=== PATIENT | female | born 1970 | race Caucasian/White ===

== ENCOUNTER 2016-10-06 08:00 | Day surgery (SDC) | payer MEDICARE, MEDICAID ==
[2016-10-06] MEDS ORDERED: Midazolam 1 MG/ML 2 ML SDV ONE (08:21)
[2016-10-06] MEDS ORDERED: fentaNYL 100 MCG/2 ML SDV ONE (08:21)
[2016-10-06] MEDS ORDERED: Propofol 200 MG/20 ML SDV ONE ×2 (08:21→09:42)
[2016-10-06] MEDS ORDERED: Lactated Ringers 1,000 ML IV SCH (08:30)
[2016-10-06] MEDS ORDERED: Cyanocobalamin (Vitamin B12) 1,000 MCG/ML SDV IM ONE (08:45)
[2016-10-06] MEDS ORDERED: Glycopyrrolate 0.2 MG/ML 2 ML SYRINGE IVPUSH ONE (09:00)
[2016-10-06] MEDS ORDERED: MVI, Adult with Vitamin K 10 ML, Thiamine 200 MG, Chromium/Copper/Mang/Selen/Zn 1 ML in... IV ONE ×4 (09:30)
[2016-10-06] MEDS ORDERED: Alum Hydrox/Mag Hydrox/Simeth 360 ML, Lidocaine 2% 60 ML PO PRN ×2 (10:12)
[2016-10-06 10:57] VITALS: BP 153/91
--- NOTE | 2016-10-08 13:49 | OR ---
DATE OF PROCEDURE: 10/06/2016 PREOPERATIVE DIAGNOSIS: Epigastric pain, status post previous Óscar-en-Y gastric bypass. POSTOPERATIVE DIAGNOSES: Epigastric pain, associated with: 1. Mild pouch gastritis. 2. Suture eroded into the lumen of the gastrojejunostomy. OPERATIVE PROCEDURE: Upper GI endoscopy with: 1. Biopsies of gastric pouch for CLOtest (16984). 2. Removal of foreign body (eroded suture) (08742). ANESTHESIA: IV sedation. INDICATIONS FOR PROCEDURE: This is a 46-year-old female, presenting with some ongoing epigastric pain. She recently was restarted on some Protonix, is feeling somewhat better. Plan is to proceed with upper GI endoscopy with biopsies and/or dilation as indicated. Potential risks including bleeding and perforation were discussed, and the patient wishes to proceed. DESCRIPTION OF PROCEDURE: The patient was taken to the operating room and placed in the left lateral decubitus position. IV sedation was administered, after which the upper GI endoscope was passed orally through the length of the esophagus, through the gastric pouch, and gastrojejunostomy, roughly 20 cm into the Óscar limb. Findings included a normal hypopharynx, larynx, upper esophageal sphincter, esophageal body, and EG junction. There was some mild redness within the pouch, but no ulcers. There was no stricturing or narrowing at the gastrojejunostomy. There was a suture eroded into the lumen, however. There was no marginal ulcer, and the remainder of the Óscar limb visualized was unremarkable. At this point, the suture was cut and removed, and following this, biopsies obtained were from the gastric pouch, sent for CLOtest for H. pylori. Minimal bleeding from the biopsy sites was seen, and the procedure then concluded. The plan at this point will be to have the patient continue the Protonix b.i.d. along with starting Carafate. We will see her back in 1 month. We will also add 2 ounces of Xylocaine mixed with 12 ounces of Mylanta, to take 1 to 2 table spoons p.r.n. for the epigastric discomfort and follow up will be with Trena Van in 1 month. Richi Garcia MD /[id number]
== END 2016-10-06 10:50 | disposition home or self-care (01) ==
LOC: JP.SDS 08:00
PROVIDERS: ATTEND Surgery
DX: K29.70 Gastritis, unspecified, without bleeding (principal); Z48.02 Encounter for removal of sutures; J44.9 Chronic obstructive pulmonary disease, unspecified; I10 Essential (primary) hypertension; Z88.6 Allergy status to analgesic agent; Z91.018 Allergy to other foods; Z88.8 Allergy status to other drugs, medicaments and biological substances
CPT/HCPCS: 43239; 43247; 87081; A9270; J2250; J2704; J3010; J3420; J7120